=== PATIENT | female | born 1985 | race Caucasian/White ===

== ENCOUNTER → 2016-06-25 | Outpatient (CLI) | payer OTHER | LOC: RAD 10:27 | PROVIDERS: ATTEND Nurse Practitioner | DX: N92.1 Excessive and frequent menstruation with irregular cycle (principal) | CPT/HCPCS: 76830 ==

== ENCOUNTER 2016-09-18 07:22 | Day surgery (SDC) | payer OTHER ==
[2016-09-06 11:34] LABS: HEMATOCRIT 40.3 % (36.0-47.0); HEMOGLOBIN 13.6 g/dL (12.0-15.5); HGB HCT DIFFERENCE 0.5; MEAN CORPUSCULAR HEMOGLOBIN 30.6 pg (27.0-33.4); MEAN CORPUSCULAR HGB CONC 33.6 g/dL (32.0-36.0); MEAN CORPUSCULAR VOLUME 91 fl (80-97); RED BLOOD COUNT 4.44 10^6/uL (3.72-5.28); WHITE BLOOD COUNT 4.7 10^3/uL (4.0-10.5)
[2016-09-06 11:35] LABS: APPEARANCE,URINE SLIGHTLY-CLOUDY; BILIRUBIN,URINE NEGATIVE (NEGATIVE); GLUCOSE, URINE NEGATIVE (NEGATIVE); KETONES,URINE NEGATIVE (NEGATIVE); LEUKOCYTE ESTERASE,URINE NEGATIVE (NEGATIVE); NITRITE,URINE NEGATIVE (NEGATIVE); PROTEIN,URINE NEGATIVE (NEGATIVE); URINE SPECIFIC GRAVITY 1.028; UROBILINOGEN,URINE NEGATIVE mg/dL (<2.0)
[~2016-09-18 07:22] MED LIST: DOXYCYCLINE HYCLATE 100 MG in DEXTROSE 5%-WATER 250 ML IV PRN; LACTATED RINGERS 1000 ML IV PRN; LIDOCAINE 0.5% INJ-PF (5 MG/ML) 50 ML SDV SUBCUT PRN
[2016-09-18] MEDS ORDERED: BUPIVACAINE HCL 0.25 % INJ/PF (2.5 MG/1 ML) 30 ML VIAL ONE (07:58)
[2016-09-18] MEDS ORDERED: FAMOTIDINE INJ/PF 20 MG/2 ML SDV IV ONE (08:06)
[2016-09-18] MEDS ORDERED: SCOPOLAMINE HYDROBROMIDE 1.5 MG PATCH.TD72 ONE (08:08)
[2016-09-18] MEDS ORDERED: LIDOCAINE 1%/EPINEPHRINE INJ 20 ML VIAL ONE (09:42)
[2016-09-18] MEDS ORDERED: PROMETHAZINE HCL INJ 25 MG/1 ML VIAL IV PRN ×2 (10:29)
[2016-09-18] MEDS ORDERED: OXYCODONE-ACETAMINOPHEN 5-325 MG TABLET PO PRN ×4 (10:29→12:40)
[2016-09-18] MEDS ORDERED: MEPERIDINE HCL/PF INJ 25 MG/1 ML DISP.SYRIN IV PRN (10:29)
[2016-09-18] MEDS ORDERED: MORPHINE SULFATE 10 MG/ML INJ IV PRN (10:29)
[2016-09-18] MEDS ORDERED: FENTANYL CITRATE INJ/PF 100 MCG/2 ML AMPUL IV PRN ×3 (10:29)
[2016-09-18] MEDS ORDERED: DIPHENHYDRAMINE HCL 50 MG/ML VIAL IV PRN (10:29)
[2016-09-18] MEDS ORDERED: MEPERIDINE HCL/PF INJ 25 MG/1 ML DISP.SYRIN ONE (12:10)
[2016-09-18] MEDS ORDERED: HYDROMORPHONE HCL INJ/PF 2 MG/ML AMPULE IV PRN (12:38)
[2016-09-18] MEDS ORDERED: IBUPROFEN 800 MG TABLET PO PRN (12:39)
[2016-09-18] MEDS ORDERED: MIDAZOLAM 2 MG/2 ML INJ ONE (13:41)
[2016-09-18] MEDS ORDERED: FENTANYL CITRATE INJ/PF 250 MCG/5 ML AMPULE ONE (13:41)
[2016-09-18] MEDS ORDERED: HYDROMORPHONE HCL INJ/PF 2 MG/ML AMPULE ONE (13:41)
[2016-09-18] MEDS ORDERED: ACETAMINOPHEN 100 ML IV ONE (13:42)
[2016-09-18] MEDS ORDERED: EPHEDRINE SULFATE INJ 50 MG/1 ML AMPULE ONE (13:42)
[2016-09-18] MEDS ORDERED: PROPOFOL INJ 200 MG/20 ML VIAL IV ONE (13:42)
[2016-09-18] MEDS ORDERED: METHYLENE BLUE 50 MG/10 ML AMPULE ONE (14:12)
[2016-09-18] MEDS ORDERED: DEXAMETHASONE SOD PHOSPHATE INJ 4 MG/1 ML VIAL ONE (14:22)
[2016-09-18] MEDS ORDERED: ONDANSETRON HCL INJ/PF 4 MG/2 ML SDV ONE (14:22)
[2016-09-18] MEDS ORDERED: GLYCOPYRROLATE INJ 0.4 MG/2 ML VIAL ONE (14:22)
[2016-09-18] MEDS ORDERED: ROCURONIUM BROMIDE INJ 50 MG/5 ML VIAL IV ONE (14:22)
[2016-09-18] MEDS ORDERED: SUCCINYLCHOLINE CHLORIDE INJ 200 MG/10 ML VIAL ONE (14:22)
[2016-09-18] MEDS ORDERED: NEOSTIGMINE METHYLSULFATE 10 MG/10 ML VIAL ONE (14:22)
[2016-09-18 14:48] VITALS: BP 113/78
--- NOTE | 2016-10-04 05:13 | Operative Report ---
Operative Report DATE OF SURGERY: 09/19/16 PREOPERATIVE DIAGNOSIS: DUB, Pelvic Pain, Persistent Left Ovarian Cyst POSTOPERATIVE DIAGNOSIS: DUB, Pelvic Pain, Endometriosis, pelvic Adhesive disease OPERATION: EUA, paracervical Block, Fractional D&C, Hysteroscopy, Operative Laparoscopy with lysis of adhesions, Chromopertubation SURGEON: SHAUNNA ROBISON [employer] TAILER: DONALD MELISSA ANESTHESIA: GA TISSUE REMOVED OR ALTERED: ECC, EMC, Adhesions/Peritoneum Biopsy, Peritoneal cytology COMPLICATIONS: None ESTIMATED BLOOD LOSS: 20ml INTRAOPERATIVE FINDINGS: normal AV 6-8week uterus on EUA, no adnexal mass palplable. Hysteroscopy noted proliferative endometrium, on laparoscopy multiple layered sheets of pelvic adhesive disease and fluid noted traped in multiple of these sites which is what was noted previously on the prior ultrasounds as an ovarian cysts. bilateral ovaries were normal and without cysts. Bilateral patent fallopian tubes on chromopertubation PROCEDURE: Anesthesia: General Endotracheal tube Anesthesiologist: Louie MC, Trini Dow CRNA Complications: None Estimated blood loss: [20ml] IV fluids: [1400ml] Urine output: [150ml] Indications: [31yo with DUB since miscarriage and persistent pelvic pain and persistent ovarian cyst since January. She also has future fertility desires. Work up in the office was completed and in office US done. Reviewed persistence of ovarian cyst and need for evaluation with D&C to help evaluate and possibly treat cause of DUB. The risks/benefits/alternatives were reviewed with the patient and she desires to proceed with planned procedure.] Procedure: The patient was taken to the operating room where general anesthesia was obtained without difficulty. The patient was then examined under anesthesia with findings as noted above with a small anteverted uterus and no adnexal masses. She was then placed in dorsal supine lithotomy position and prepped and draped in the normal sterile fashion. A speculum was placed in the vagina. The anterior cervix was grasped with a single-tooth tenaculum and the uterus sounded to 8 cm after paracervical block was performed with 8 mL of 1% lidocaine with epinephrine. Endocervcal currettings were obtained. Sequential dilators were then used to dilate the cervix to accommodate the hysteroscope. The hysteroscope was then gently advanced into the uterine cavity in the usual fashion with visualization of the proliferative appearing endometrium. The hysteroscope was then removed. At this time gentle curettage was performed until a gritty texture was noted. A humi uterine manipulator was then advanced into the uterus to provide a means of manipulation of the uterus. The speculum and tenaculum were then removed from the patient's cervix and vagina. Attention was then turned to the patient's abdomen where a 5 mm infraumbilical skin incision was then made. The Optiview trocar with 0 laparoscope was then advanced without difficulty under direct visualization with the Optiview trocar. This was performed while tenting the abdominal wall and these will fashion. Intraperitoneal placement was confirmed by the direct visualization. Pneumoperitoneum was then obtained with approximately 4 L carbon dioxide gas. Survey of the patient's abdomen and pelvis revealed findings as noted above. A second skin incision was then made approximately 3 cm superior 4 cm medial to the anterior superior iliac spine on the left and then a third skin incision was made approximately 3 cm superior to the lower incision. These incisions were made under direct visualization with the laparoscope. The second and third trochars were then advanced under direct visualization of the laparoscope at the sites. Two additional 5mm trocar sites were placed on the patients right mirroring the left sites. Survey of the patients abomen and pelvis revealed severe pelvic adhesive disease with multiple layers of pelvic adhesions cascading in sheets from the posterior surface of the uterus and also in multiple layers which enclosed perineal fluid. Sample of peritoneal fluid obtained for cytology. At this time lysis of adhesions was performed with ligasure and monopolar scissors for approximately one hour with the final result being a clear posterior cul de sac and interceed was placed over the posterior surface of the uterus after completion of the chromopertubation. During lysis of adhesions multiple samples of peritoneum obtained and sent for pathology. After removal of sheets of pelvis adhesions bilateral ovaries were noted to be normal and no evidence of ovarian cysts noted. Chromopertubation performed in the usual fahion with normal and patent bilateral fallopian tubes. All operative sites were visualized and noted to be hemostatic. The 4 additional trochars on the patient's left and right than removed under direct visualization. The 5 mm infraumbilical trocar was then removed after abdominal insufflation was removed. The skin at all trocar sites were closed with 3-0 Monocryl in a subcuticular fashion with overlying Dermabond. 2 grams of Ancef was given prior to this procedure. After completion of skin closure of the trocar sites attention was then turned to the vagina where the Humi uterine manipulator was removed and the bivalve speculum was replaced. Silver nitrate was applied to the tenaculum sites for hemostasis and the speculum was removed. Sponge lap needle and instrument counts were correct 3. The patient tolerated the procedure well and was taken to the recovery area awake and in stable condition.
== END 2016-09-18 14:45 | disposition home or self-care (01) ==
LOC: OROUT 07:22
PROVIDERS: ATTEND Student in an Organized Health Care Education/Training Program
PROC: 0UDB8ZX Extraction of Endometrium, Via Natural or Artificial Opening Endoscopic, Diagnostic (ICD-10-PCS; 2016-09-18)
PROC: 0DNW4ZZ Release Peritoneum, Percutaneous Endoscopic Approach (ICD-10-PCS; 2016-09-18)
PROC: 3E0P8KZ Introduction of Other Diagnostic Substance into Female Reproductive, Via Natural or Artificial Opening Endoscopic (ICD-10-PCS; principal; 2016-09-18 09:45)
PROC: 0UJ84ZZ Inspection of Fallopian Tube, Percutaneous Endoscopic Approach (ICD-10-PCS; 2016-09-18 09:45)
DX: N92.5 Other specified irregular menstruation (principal); N83.209 Unspecified ovarian cyst, unspecified side; N80.3 Endometriosis of pelvic peritoneum; N73.6 Female pelvic peritoneal adhesions (postinfective); N93.8 Other specified abnormal uterine and vaginal bleeding; E03.9 Hypothyroidism, unspecified; Z79.899 Other long term (current) drug therapy
CPT/HCPCS: 86900; 86901; 36415 ×2; 86850; 85027; 81005; 81025; 88162; 88305 ×2; 49320; 58350; 58558; C1765; J2250; J3490 ×3; J1100; J3010; J2175; J1170; J0330; J2405; J7060; J2704; S0028; J0131; Q9968; 840